=== PATIENT | female | born 1975 | race Asian ===

== ENCOUNTER 2016-09-15 12:48 | Emergency (ER) | payer OTHER ==
[~2016-09-15] VITALS: Ht 165.1 cm; Wt 80.3 kg
[2016-09-15 13:24] LABS: ABSOLUTE BASOPHIL COUNT 0 /CUMM (0.0-0.2); ABSOLUTE EOSINOPHIL COUNT 0.1 /CUMM (0.0-0.7); ABSOLUTE GRANULOCYTE CT 3.1 /CUMM (1.4-6.5); ABSOLUTE LYMPH COUNT 2.3 /CUMM (1.2-3.4); ABSOLUTE MONOCYTE COUNT 0.3 /CUMM (0.10-0.60); BASOPHIL % 0.4 % (0.0-2.0); EOSINOPHIL % 1.4 % (0-5); GRANULOCYTE % 52.7 % (42.2-75.2); HEMATOCRIT 33.7 % (37-47); MEAN CORPUSCULAR HGB 23.9 PG (27.0-31.0); MEAN CORPUSCULAR HGB CONC 32.8 G/DL (33.0-37.0); MEAN CORPUSCULAR VOLUME 72.8 FL (81.0-99.0); MEAN PLATELET VOLUME 7.8 FL (7.4-10.4); PLATELET COUNT 370 /CUMM (130-400); RBC DISTRIBUTION WIDTH 14.4 % (11.5-14.5); RED BLOOD CELL CT 4.62 /CUMM (4.20-5.40); WHITE BLOOD CELL COUNT 5.8 /CUMM (4.8-10.8)
--- NOTE | 2016-09-15 14:37 | ED CARDIAC/CP/PALPITATIONS ---
History of Present Illness General Chief Complaint: Chest Pain Stated Complaint: CP, SOB Source: patient, family Exam Limitations: no limitations Vital Signs & Intake/Output Vital Signs & Intake/Output Vital Signs Date Time Temp Pulse Resp B/P B/P Pulse O2 O2 Flow FiO2 Mean Ox Delivery Rate 09/15 1728 80 20 126/82 Room Air 09/15 1522 97.1 71 18 108/66 99 09/15 1304 98.5 76 16 114/78 98 Room Air ED Intake and Output 09/16 0000 09/15 1200 Intake Total Output Total Balance Patient 177 lb Weight Weight Reported by Patient Measurement Method Allergies Coded Allergies: No Known Allergies (09/15/16) Reconcile Medications No Known Home Medications Triage Note: PT STATES SHE STATES SHE IS HAVING DIFFICULTY BREATHING AND WHEN SHE TAKES DEEP BREATHS IT HURTS IN HER CHEST. PT STATES SHE IS HAVING PERIODS WHEN SHE LOOSES HER VISION AND SHE SITS DOWN AND IT COMES BACK. PT BREATHING HEAVY IN TRIAGE. PT REPORTS THESE EPISODES HAVE HAPPEND 2 TIMES OVER THE PAST WEEK. Triage Nurses Notes Reviewed? yes : No Patient currently breastfeeds: No HPI: Ms. Dejesus is a 41 yo f w/ no significant PMH presenting to the emergency department for left-sided chest pain. Patient states that she had 2 episodes of chest pain over the past week. Last episode was last Thursday, lasting for 3-4 hours at a time. That episode resolved independently. Today's episode began at around 10 AM while the patient was ironing clothes. She noted a warm sensation to the left side of her head, L shoulder as well as chest and heart. She endorses some mild palpitations at that point in time. Patient had chest pain with deep inspiration and felt as though she could not take a big breath. Pain is only worse with inspiration. Patient denies any dyspnea upon exertion. She states she is unable to do a full flight of stairs without shortness of breath or causing to take up at baseline. She has been unable to run for several years now, she believes is related to her age. Patient denies ever having any cardiac stress testing in the past. No history of colonoscopy either. Normal urinary and bowel function. Last BM earlier today. Eating and drinking well. states that the patient brother of sepsis 2 months ago and she's had increased stress since. They are flying to [place] in 1-2 weeks and would like to make sure that these episodes are nothing to be worried about. (PATRICK PARKER MD) Past History Travel History Traveled to [place] past 21 day No Medical History Any Pertinent Medical History? see below for history Surgical History Surgical History: none Psychosocial History What is your primary language Portuguese Tobacco Use: Never used ETOH Use: occasional use Illicit Drug Use: denies illicit drug use Family History Hx Contributory? No (PATRICK PARKER MD) Review of Systems Review of Systems Constitutional: Reports: see HPI. EENTM: Reports: no symptoms. Respiratory: Reports: short of breath. Denies: cough, hemoptysis, wheezing. Cardiovascular: Reports: chest pain, palpitations. Denies: edema, orthopena, peripheral edema, syncope. GI: Reports: no symptoms. Genitourinary: Reports: no symptoms. Musculoskeletal: Reports: no symptoms. Skin: Reports: no symptoms. Neurological/Psychological: Reports: no symptoms. Hematologic/Endocrine: Reports: no symptoms. Immunologic/Allergic: Reports: no symptoms. All Other Systems: Reviewed and Negative (PATRICK PARKER MD) Physical Exam Physical Exam General Appearance: well developed/nourished, no apparent distress, alert, awake , comfortable Head: atraumatic, normal appearance Eyes: Bilateral: normal appearance, PERRL, EOMI. Ears, Nose, Throat: normal pharynx, normal ENT inspection, hearing grossly normal Neck: normal inspection, supple, full range of motion Respiratory: normal breath sounds, chest non-tender, no respiratory distress Cardiovascular: regular rate/rhythm Gastrointestinal: normal bowel sounds, soft, non-tender Back: normal inspection, normal range of motion Extremities: normal inspection, normal range of motion Neurologic/Psych: no motor/sensory deficits, awake, alert, oriented x 3, normal gait, normal mood/affect, machine riveter II-XII nml as tested Skin: intact, normal color, warm/dry Core Measures ACS in differential dx? No Severe Sepsis Present: No Septic Shock Present: No (PATRICK PARKER MD) Progress Differential Diagnosis: myocarditis, pericarditis, pneumonia, pneumothorax, pulmonary embolism, PUD/GERD, cardiac arrythmia, costochonditis, anxiety Plan of Care: Orders Procedure Date/time Status TROPONIN LEVEL 09/15 1629 Complete EKG 09/15 162 Active Add-on Test (ER Only) 09/15 1454 Active TROPONIN LEVEL 09/15 1312 Complete D-DIMER 09/15 1306 Complete COMPREHENSIVE METABOLIC PANEL 09/15 1306 Complete CBC WITHOUT DIFFERENTIAL 09/15 1306 Complete EKG 09/15 1252 Active Laboratory Tests 09/15/16 1638: Troponin I < 0.01 09/15/16 1312: Anion Gap 14, Estimated GFR > 60, BUN/Creatinine Ratio 16.3, Glucose 86, Calcium 10.1, Total Bilirubin 0.4, AST 16, ALT 20, Alkaline Phosphatase 76, Troponin I < 0.01, Total Protein 7.9, Albumin 4.6, Globulin 3.3, Albumin/Globulin Ratio 1.4, D-Dimer High Sensitivty < 200, CBC w Diff NO MAN DIFF REQ, RBC 4.62, MCV 72.8 L , MCH 23.9 L, RDW 14.4, MPV 7.8, Gran % 52.7, Lymphocytes % 39.9, Monocytes % 5.6, Eosinophils % 1.4, Basophils % 0.4, Absolute Granulocytes 3.1, Absolute Lymphocytes 2.3, Absolute Monocytes 0.3, Absolute Eosinophils 0.1, Absolute Basophils 0, PUBS MCHC 32.8 L Well-appearing 41-year-old female with pleuritic left sided chest pain. Patient 's vitals are within normal limits. EKG is nonischemic. Initial troponin is negative. D-dimer is also negative. CBCs and CMP are essentially within normal limits. Has not had any previous cardiac risk stratification. No risk factors such as hypertension or diabetes. Patient does not smoke and has never been a smoker. No drug use or significant alcohol use. Patient has had increased stress with the of her brother. Given the episodic nature of the pain, this is likely related to an MSK issue vs anxiety. No family or personal history of blood clots or PE. Patient is PERC negative with low pre-test probability so ddimer is appropriate to r/o PE as possible underlying etiology. Chest x-ray negative. Pain is somewhat recreatable with palpation. Will obtain a second troponin and 3 hours. If negative will discharge home with follow-up with her primary care doctor for outpatient risk stratification with a stress test. This is likely either costochondritis or anxiety given the increased stress. Repeat EKG is unchanged. Repeat troponin is negative. D-dimer is negative and the remainder of labs are otherwise unremarkable. And have patient follow up with her primary care doctor for outpatient's cardiac stress test. and patient are comfortable with the plan. Given return precautions. (PATRICK PARKER MD) CXR Impression: no acute abnormality, No acute cardiopulmonary findings. Initial ED EKG: normal axis, normal intervals, normal p-waves, normal QRS complex, rhythm, rate, no ST T wave changes (PATRICK PARKER MD) Departure Departure Time of Disposition: 1720 Disposition: HOME OR SELF CARE Condition: Stable Clinical Impression Primary Impression: Acute chest wall pain Referrals: JAD KUMARI MD (PCP/Family) Additional Instructions: Please follow up with her primary care doctor for an outpatient cardiac stress test as soon as possible. If you have worsening pain, shortness of breath, or any other concerning symptoms, please return to the emergency department for further evaluation. Departure Forms: Customer Survey General Discharge Information Prescriptions: Current Visit Scripts No Known Home Medications (PATRICK PARKER MD) PA/PRODUCTION FINISHER Co-Sign Statement Statement: ED Attending supervision documentation- [] I saw and evaluated the patient. I have also reviewed all the pertinent lab results and diagnostic results. I agree with the findings and the plan of care as documented in the PA's/PRODUCTION FINISHER's documentation. [X] I have reviewed the ED Record and agree with the PA's/PRODUCTION FINISHER's documentation. [] Additions or exceptions (if any) to the PAs/PRODUCTION FINISHER's note and plan are summarized below: [] (KATE RODRIGUEZ DO) Critical Care Note Critical Care Note Critical Care Time: non-applicable (PATRICK PARKER MD)
--- NOTE | 2016-09-15 15:40 | RADIOLOGY REPORT ---
EXAMINATION: XR CHEST CLINICAL INFORMATION: Pain, shortness of breath, costochondritis COMPARISON: None TECHNIQUE: 2 views of the chest were obtained. FINDINGS: The cardiomediastinal silhouette and pulmonary vascularity are normal. The lungs are clear. The costophrenic angles are sharp. No pleural effusions or pneumothorax. The visualized bony thorax is unremarkable. IMPRESSION: No acute cardiopulmonary findings.
[2016-09-15 17:28] VITALS: BP 126/82
== END 2016-09-15 17:29 ==
LOC: ERH 12:48
PROVIDERS: Emergency Medicine
DX: R07.89 Other chest pain (principal)
CPT/HCPCS: 93005; 93010